=== PATIENT | male | born 1955 | race Caucasian/White ===

== ENCOUNTER 2021-01-29 00:42 | Day surgery (SDC) | payer BC, SELFPAY ==
[2021-01-17 13:11] VITALS: BMI 34.8
[2021-01-29 07:50] VITALS: BP 122/77; PULSE 76; RESP 18; TEMP 36.1; O2SAT 97; BMI 34.4
[2021-01-29] MEDS: LACTATED RINGERS 1,000 ML 150 ML IV CONT (08:03)
--- NOTE | 2021-01-29 08:53 | WPDANESEPPF ---
Anes - Initial Pre Proc Eval Procedure: Operation Date: 01/29/21 09:00 Proposed Procedures p Colonoscopy - José Miguel Tim MD Date/Time: 01/29/21 08:53 Surgeon: José Miguel Tim MD Pre Op Diagnosis: Positive ColoGuard Patient Data Age: 65 Gender: M Height: 1.75 m Weight: 105.8 kg Last Vital Signs Temp 36.1 C L 01/29/21 07:50 Pulse 76 01/29/21 07:50 Resp 18 01/29/21 07:50 BP 122/77 01/29/21 07:50 Pulse Ox 97 01/29/21 07:50 Allergies Allergy/AdvReac Type Severity Reaction Status Date / Time Penicillins Allergy Intermediate Fever Verified 01/29/21 07:49 Home Medications Medication Instructions Recorded Confirmed Type B-complex with vitamin C 1 cap PO DAILY 12/04/19 01/17/21 History multivitamin 1 cap PO DAILY 12/04/19 01/17/21 History omega-3 fatty acids 1,000 mg 2,000 mg PO BID cap 12/04/19 01/17/21 History capsule red yeast rice 600 mg capsule 600 mg PO BID 11/18/20 01/17/21 History cyanocobalamin (vitamin B-12) 1,000 mcg PO DAILY 11/26/20 01/17/21 History 1,000 mcg tablet folic acid 800 mcg tablet 0.8 mg PO DAILY 11/26/20 01/17/21 History sodium,potassium,mag sulfates 17.5 See Rx Instructions PO .COMPLEX 01/16/21 Rx gram-3.13 gram-1.6 gram oral soln #354 ml Beet Root 2 tab-cap PO DAILY 01/17/21 01/17/21 History Heptatone 2 cap PO DAILY 01/17/21 01/17/21 History Tummeric 1 cap PO DAILY 01/17/21 01/17/21 History pseudoephedrine-guaifenesin 1 tablet PO DAILY 01/17/21 01/17/21 History [Mucinex D] Patient hx anesthesia problems: none Family hx anesthesia problems: none PMFSH Past Medical History Medical History (Updated 01/29/21 @ 08:55 by Roc Alfaro MD) Blood donor Colon cancer screening Encounter for routine adult health examination without abnormal findings Hearing loss Hyperlipidemia Obesity Positive colorectal cancer screening using Cologuard test Sinusitis Family History Family History Mother Family history of glaucoma Patient's mother is in good health Father Family history of primary malignant neoplasm of liver Social History Social History (Updated 11/18/20 @ 07:54 by Lima Burch LPN) Smoking packs per day: 0 Smoking cigarettes per day: 0.0 Years smoked: 0 Smoking pack-years: 0.00 Smoking status: Light tobacco smoker Tobacco type: cigars Second hand tobacco smoke exposure: Yes Additional smoking assessment comments: OCC. CIGAR Alcohol intake: current Drinks per week: 5 Alcohol use details: WINE Substance use: never Substance use type: does not use Living arrangements: with family Spiritual care concerns: No Anes - Eval Final PreProcedure Day of Procedure 01/29/21 08:53 Patient weight: obese Heart: regular rate and rhythm Lungs: clear to auscultation and normal air movement Airway: Mallampati scale class II Neurological: alert and oriented Last oral intake: >/= 8 hours ASA classification: II Emergent: no Anesthetic plan: proceed Anesthesia type and monitoring: general GIVS Informed Consent: The patient's anesthetic plan and its attendant risks and benefits were discussed with the patient/family/POA. Questions were solicited and answers provided to the satisfaction of the patient/family/POA.
--- NOTE | 2021-01-29 09:11 | PM.HPGS ---
History of Present Illness History of Present Illness Consent: Risks, benefits, and alternatives have been discussed and questions answered. Patient agrees to proceed with procedure. Chief complaint: Positive ColoGuard Narrative: Negrito Menchaca is a 65 year old male with last colonoscopy 12 years ago, recently had + cologuard Review of Systems Constitutional: Constitutional: Denies headache(s) and Denies weakness Eyes: Eyes: Denies blurry vision ENT: Reports Normal hearing present, Denies headache(s) and Denies neck pain Cardiovascular: Cardiovascular: Denies chest pain and Denies dyspnea Respiratory: Respiratory: Denies dyspnea Gastrointestinal: Gastrointestinal: Reports no additional gastrointestinal complaints Genitourinary: Genitourinary: Denies dysuria Musculoskeletal: Musculoskeletal: Denies neck pain Integumentary/Breasts: Skin/Breast: Denies dry skin Neurologic: Reports Normal hearing present, Denies headache(s) and Denies weakness Psychiatric: Psychiatric: Denies anxiety Endocrine: Endocrine: Denies change in body appearance Hematologic/Lymphatic: Hematologic/Lymphatic: Denies easy bleeding Allergic/Immunologic: Allergic/Immunologic: Denies urticaria PMFSH Past Medical History Medical History (Updated 01/29/21 @ 08:55 by Roc Alfaro MD) Blood donor Colon cancer screening Encounter for routine adult health examination without abnormal findings Hearing loss Hyperlipidemia Obesity Positive colorectal cancer screening using Cologuard test Sinusitis Family History Family History Mother Family history of glaucoma Patient's mother is in good health Father Family history of primary malignant neoplasm of liver Social History Social History (Updated 11/18/20 @ 07:54 by Lima Burch LPN) Smoking packs per day: 0 Smoking cigarettes per day: 0.0 Years smoked: 0 Smoking pack-years: 0.00 Smoking status: Light tobacco smoker Tobacco type: cigars Second hand tobacco smoke exposure: Yes Additional smoking assessment comments: OCC. CIGAR Alcohol intake: current Drinks per week: 5 Alcohol use details: WINE Substance use: never Substance use type: does not use Living arrangements: with family Spiritual care concerns: No Meds Home Medications and Allergies Home Medications Medication Instructions Recorded Confirmed Type B-complex with vitamin C 1 cap PO DAILY 12/04/19 01/17/21 History multivitamin 1 cap PO DAILY 12/04/19 01/17/21 History omega-3 fatty acids 1,000 mg 2,000 mg PO BID cap 12/04/19 01/17/21 History capsule red yeast rice 600 mg capsule 600 mg PO BID 11/18/20 01/17/21 History cyanocobalamin (vitamin B-12) 1,000 mcg PO DAILY 11/26/20 01/17/21 History 1,000 mcg tablet folic acid 800 mcg tablet 0.8 mg PO DAILY 11/26/20 01/17/21 History sodium,potassium,mag sulfates 17.5 See Rx Instructions PO .COMPLEX 01/16/21 Rx gram-3.13 gram-1.6 gram oral soln #354 ml Beet Root 2 tab-cap PO DAILY 01/17/21 01/17/21 History Heptatone 2 cap PO DAILY 01/17/21 01/17/21 History Tummeric 1 cap PO DAILY 01/17/21 01/17/21 History pseudoephedrine-guaifenesin 1 tablet PO DAILY 01/17/21 01/17/21 History [Mucinex D] Allergies Allergy/AdvReac Type Severity Reaction Status Date / Time Penicillins Allergy Intermediate Fever Verified 01/29/21 07:49 Vital Signs Vital Signs - 24 hr 01/29/21 07:50 Temperature 96.9 F L Pulse Rate 76 Respiratory Rate 18 Blood Pressure 122/77 Pulse Oximetry 97 Exam Const: General: comfortable and no acute distress HENMT: General nose exam: Normal nares present Eyes: General: appearance normal, both eyes and all related structures Neck: Neck: no JVD Resp: Auscultation: clear to auscultation bilaterally Cardio: Rate: regular rate Rhythm: regular rhythm GI: Inspection: non-distended GI Palp: Yes Soft to palpation Skin: General skin
[2021-01-29 09:36] VITALS: BP 102/66; PULSE 64; RESP 19; O2SAT 96
[2021-01-29 09:46] VITALS: BP 116/77; PULSE 66; RESP 14; O2SAT 96
[2021-01-29 09:56] VITALS: BP 132/86; PULSE 63; RESP 17; O2SAT 94
== END 2021-01-29 10:02 | disposition home or self-care (01) ==
PROVIDERS: PCP Internal Medicine; Visit Provider Internal Medicine Gastroenterology
PROC: 0DJD8ZZ Inspection of Lower Intestinal Tract, Via Natural or Artificial Opening Endoscopic (ICD-10-PCS; CPT 45378; principal; 2021-01-29 09:00)
DX: R19.5 Other fecal abnormalities (principal); D12.5 Benign neoplasm of sigmoid colon; D12.8 Benign neoplasm of rectum; K63.5 Polyp of colon; K64.8 Other hemorrhoids; E78.5 Hyperlipidemia, unspecified; E66.9 Obesity, unspecified; Z68.34 Body mass index [BMI] 34.0-34.9, adult; Z72.0 Tobacco use
CPT/HCPCS: 45385; 88305; J2001; J2704; J7120

== ENCOUNTER 2023-07-12 08:14 | Outpatient (CLI) | payer BC, SELFPAY ==
--- NOTE | ~2023-07-12 | XR_ITS ---
EXAMINATION: XR chest 2V DATE: 07/12/2023 08:34 INDICATION: Cough. Chronic sinusitis. TECHNIQUE: Frontal and lateral views of the chest were obtained. COMPARISON: None. FINDINGS: There is no pneumonia, pleural effusion, or pneumothorax. The heart size is normal. There i s an old healed fracture of right clavicle. There is mild chronic anterior wedging of multiple midtho racic vertebral bodies. IMPRESSION: 1. No acute cardiopulmonary disease. Reviewed, dictated and finalized at location A.
--- NOTE | ~2023-07-12 | XR_ITS ---
EXAMINATION: XR sinus min 3V INDICATION: Chronic sinusitis TECHNIQUE: Five views of the paranasal sinuses are obtained. COMPARISON: None available FINDINGS: There is normal pneumatization of the paranasal sinuses. No definite sinus opacification is identified. No facial fracture is identified. The mastoid air cells appear to be well aerated. The n tabby septum is midline. IMPRESSION: 1. No definite evidence of sinusitis. If there is high clinical suspicion for sinusitis, further eval uation with CT sinuses is recommended. Reviewed, dictated and finalized at location B. IMPRESSION: 1. No definite evidence of sinusitis. If there is high clinical suspicion for s inusitis, further evaluation with CT sinuses is recommended.
== END 2023-07-12 08:15 | disposition home or self-care (01) ==
PROVIDERS: PCP Internal Medicine; Visit Provider Internal Medicine
DX: J32.9 Chronic sinusitis, unspecified (principal); R05.3 Chronic cough
CPT/HCPCS: 70220; 71046

== ENCOUNTER → 2023-07-19 13:24 | Outpatient (CLI) | payer BC, SELFPAY ==
--- NOTE | ~2023-07-19 | CT_ITS ---
EXAMINATION: CT sinus wo con DATE: 07/19/2023 13:40 INDICATION: Chronic sinusitis TECHNIQUE: Computed tomography (CT) of the paranasal sinuses was performed without intravenous contra st. The dose-length product was 292.39 mGy-cm. Automated exposure control and iterative reconstructio n technique were employed. COMPARISON: None FINDINGS: There is a mucous retention cyst of the right maxillary sinus. No significant mucosal thick ening. No mucoperiosteal reaction. No air-fluid levels. Rightward nasal septal deviation. Mastoids ar e pneumatized. Mastoids are pneumatized. IMPRESSION: 1. 1.7 cm mucous retention cyst right maxillary sinus. Reviewed, dictated and finalized at location B.
== END ==
PROVIDERS: PCP Internal Medicine; Visit Provider Allergy & Immunology
DX: J32.9 Chronic sinusitis, unspecified (principal)
CPT/HCPCS: 70486

== ENCOUNTER 2023-10-24 12:05 | Emergency (ER) | payer BC, SELFPAY ==
[2023-10-24 12:38] VITALS: BP 149/92; PULSE 62; RESP 16; TEMP 36.6; O2SAT 100
--- NOTE | 2023-10-24 12:41 | ED.GENADULT ---
HPI - General Adult General Chief complaint: Upper Respiratory Infection Stated complaint: Sore Throat Time Seen by Provider: 10/24/23 12:40 Source: patient, RN notes reviewed and old records reviewed Mode of arrival: ambulatory Limitations: no limitations History of Present Illness HPI narrative: 68-year-old male patient who presents to [facility] today with complaint of sore throat that started this a.m. Patient states was exposed to strep throat on so is wanting a strep test today to be safe. Patient denies any other complaints at this time Related Data Home Medications Medication Instructions Recorded Confirmed B-complex with vitamin C 1 cap PO DAILY 12/04/19 07/12/23 multivitamin 1 cap PO DAILY 12/04/19 07/12/23 omega-3 fatty acids 1,000 mg 2,000 mg PO BID 12/04/19 07/12/23 capsule (Fish Oil Concentrate) red yeast rice 600 mg capsule 600 mg PO BID 11/18/20 07/12/23 cyanocobalamin (vitamin B-12) 1,000 mcg PO DAILY 11/26/20 07/12/23 1,000 mcg tablet folic acid 800 mcg tablet 0.8 mg PO DAILY 11/26/20 07/12/23 Beet Root 2 tab-cap PO DAILY 01/17/21 07/12/23 Heptatone 2 cap PO DAILY 01/17/21 07/12/23 Tummeric 1 cap PO DAILY 01/17/21 07/12/23 pseudoephedrine-guaifenesin ER 60 1 tablet PO DAILY 01/17/21 07/12/23 mg-600 mg tablet,extend release 12hr (Mucinex D) Pre/Probiotic BYMOUTH 07/12/23 07/12/23 Allergies Allergy/AdvReac Type Severity Reaction Status Date / Time Penicillins Allergy Intermediate Fever Verified 07/12/23 07:33 Review of Systems Constitutional: Constitutional: Reports no additional constitutional complaints Eyes: Eyes: Reports no additional eye complaints ENT: Reports as per HPI and Reports sore throat Cardiovascular: Cardiovascular: Reports no additional cardiovascular complaints Respiratory: Respiratory: Reports no additional respiratory complaints Neurologic: Reports system reviewed and no additional complaints, except as documented PMFSH Past Medical History Medical History Abnormal finding of blood chemistry Blood donor BMI 34.0-34.9,adult BMI 35.0-35.9,adult BMI 36.0-36.9,adult Chronic cough Colon cancer screening Encounter for preventive health examination Encounter for routine adult health examination with abnormal findings Encounter for routine adult health examination without abnormal findings Hearing loss Hx of colonic polyps Hyperlipidemia Hyperlipidemia Obesity Personal history of COVID-19 Positive colorectal cancer screening using Cologuard test Sinusitis Surgical History Surgical History History of total bilateral knee replacement Family History Family History Mother Family history of glaucoma Patient's mother is in good health Father Family history of primary malignant neoplasm of liver Social History Social History Smoking packs per day: 0 Smoking cigarettes per day: 0.0 Years smoked: 0 Smoking pack-years: 0.00 Smoking status: Current some day smoker (cigar) Tobacco type: cigars Second hand tobacco smoke exposure: Yes Additional smoking assessment comments: OCC. CIGAR Alcohol intake: current Drinks per week: 5 Alcohol use details: WINE Substance use: never Substance use type: does not use Lack of Transportation: No Lack of Food: Never True Current Housing: I Have Housing Concerned About Future Housing: No Difficulty Paying Gas/Electric Bills: No Difficulty Paying for Meds: No Currently Unemployed: No Education: Bachelor's Degree Difficulty w/ Childcare or Family Care: No Living arrangements: with family Occupation/Education: occupation Gender identity (if verbalized by the patient): Male Spiritual care concerns: No Comments At the time of my signature
== END 2023-10-24 12:58 | disposition home or self-care (01) ==
PROVIDERS: Emergency Provider Registered Nurse; PCP Internal Medicine
DX: J02.9 Acute pharyngitis, unspecified (principal); Z72.0 Tobacco use; E78.5 Hyperlipidemia, unspecified; E66.9 Obesity, unspecified; Z68.34 Body mass index [BMI] 34.0-34.9, adult; Z86.16 Personal history of COVID-19; Z96.653 Presence of artificial knee joint, bilateral
CPT/HCPCS: 87081; 87880; 99213; G0463

== ENCOUNTER 2024-08-22 01:22 | Day surgery (SDC) | payer BC, SELFPAY ==
--- NOTE | 2024-06-02 09:15 | SUR.PREOP ---
Patient called to reschedule his procedure since Dr. Blake will be unavailable that day. Message left on his voicemail.
[2024-08-03 13:22] VITALS: BMI 34.8
[2024-08-22 06:18] VITALS: BP 128/74; PULSE 67; RESP 18; TEMP 36.5; O2SAT 98
[2024-08-22] MEDS: LACTATED RINGERS 1,000 ML 150 ML IV CONT (06:26)
--- NOTE | 2024-08-22 07:15 | PM.HPGS ---
History of Present Illness History of Present Illness Consent: Risks, benefits, and alternatives have been discussed and questions answered. Patient agrees to proceed with procedure. Chief complaint: Pers. Hx. colon polyp Narrative: Negrito Menchaca is a 69 year old male with colon polyp in 2020 Review of Systems Review of Systems: All systems reviewed & are unremarkable except as noted in HPI and below PMFSH Past Medical History Medical History (Updated 07/26/24 @ 07:16 by Dominga Castellanos [facility]) Abnormal finding of blood chemistry Blood donor BMI 34.0-34.9,adult BMI 35.0-35.9,adult BMI 36.0-36.9,adult Chronic cough Colon cancer screening Encounter for preventive health examination Encounter for routine adult health examination with abnormal findings Encounter for routine adult health examination without abnormal findings Hearing loss Hx of colonic polyps Hyperlipidemia Hyperlipidemia Obesity Personal history of COVID-19 Positive colorectal cancer screening using Cologuard test Sinusitis Surgical History Surgical History History of total bilateral knee replacement Family History Family History Mother Family history of glaucoma Patient's mother is in good health Father Family history of primary malignant neoplasm of liver Social History Social History Smoking packs per day: 0 Smoking cigarettes per day: 0.0 Years smoked: 0 Smoking pack-years: 0.00 Smoking status: Current some day smoker (cigar) Tobacco type: cigars Second hand tobacco smoke exposure: Yes Additional smoking assessment comments: 1-2 cigars per week Alcohol intake: current Drinks per week: 5 Alcohol use details: WINE Substance use: never Substance use type: does not use Lack of Transportation: No Lack of Food: Never True Current Housing: I Have Housing Concerned About Future Housing: No Difficulty Paying Gas/Electric Bills: No Difficulty Paying for Meds: No Currently Unemployed: No Education: Bachelor's Degree Difficulty w/ Childcare or Family Care: No Living arrangements: with family Occupation/Education: occupation Gender identity (if verbalized by the patient): Male Spiritual care concerns: No Meds Home Medications and Allergies Home Medications Medication Instructions Recorded Confirmed Type B-complex with vitamin C 1 cap PO DAILY 12/04/19 08/22/24 History multivitamin 1 cap PO DAILY 12/04/19 08/22/24 History omega-3 fatty acids 1,000 mg 2,000 mg PO BID 12/04/19 08/22/24 History capsule (Fish Oil Concentrate) red yeast rice 600 mg capsule 600 mg PO BID 11/18/20 08/22/24 History cyanocobalamin (vitamin B-12) 1,000 mcg PO DAILY 11/26/20 08/22/24 History 1,000 mcg tablet folic acid 800 mcg tablet 0.8 mg PO DAILY 11/26/20 08/22/24 History Beet Root 2 tab-cap PO DAILY 01/17/21 08/22/24 History Heptatone 2 cap PO DAILY 01/17/21 08/22/24 History Tummeric 1 cap PO DAILY 01/17/21 08/22/24 History pseudoephedrine-guaifenesin ER 60 1 tablet PO DAILY 01/17/21 08/22/24 History mg-600 mg tablet,extend release 12hr (Mucinex D) Pre/Probiotic 1 1.73 m2 PO DAILY 07/12/23 08/22/24 History Glucosamin and Chondroiton 1 tab-cap BYMOUTH DAILY 12/15/23 08/22/24 History k2 1 cap BYMOUTH DAILY 07/26/24 08/22/24 History zinc 1 tab-cap BYMOUTH DAILY 07/26/24 08/22/24 History ashwagandha extract 1 tablet PO DAILY 08/03/24 08/22/24 History Allergies Allergy/AdvReac Type Severity Reaction Status Date / Time Penicillins Allergy Intermediate Fever Verified 08/22/24 06:16 Vital Signs Vital Signs - 24 hr 08/22/24 06:18 Temperature 97.7 F Pulse Rate 67 Respiratory Rate 18 Blood Pressure 128/74 Pulse Oximetry 98 Oxygen Delivery Room Air Exam Const: General: comfortable and no acute distress HENMT: Face/N
--- NOTE | 2024-08-22 07:42 | WPDANESEPPF ---
Anes - Initial Pre Proc Eval Procedure: Operation Date: 08/22/24 07:30 Proposed Procedures p Colonoscopy - José Miguel Tim MD Date/Time: 08/22/24 07:42 Surgeon: José Miguel Tim MD Pre Op Diagnosis: Pers. Hx. colon polyp Patient Data Age: 69 Gender: M Height: 1.75 m Weight: 107.5 kg Last Vital Signs Temp 97.7 F 08/22/24 06:18 Pulse 67 08/22/24 06:18 Resp 18 08/22/24 06:18 BP 128/74 08/22/24 06:18 Pulse Ox 98 08/22/24 06:18 O2 Del Method Room Air 08/22/24 06:18 Allergies Allergy/AdvReac Type Severity Reaction Status Date / Time Penicillins Allergy Intermediate Fever Verified 08/22/24 06:16 Home Medications Medication Instructions Recorded Confirmed Type B-complex with vitamin C 1 cap PO DAILY 12/04/19 08/22/24 History multivitamin 1 cap PO DAILY 12/04/19 08/22/24 History omega-3 fatty acids 1,000 mg 2,000 mg PO BID 12/04/19 08/22/24 History capsule (Fish Oil Concentrate) red yeast rice 600 mg capsule 600 mg PO BID 11/18/20 08/22/24 History cyanocobalamin (vitamin B-12) 1,000 mcg PO DAILY 11/26/20 08/22/24 History 1,000 mcg tablet folic acid 800 mcg tablet 0.8 mg PO DAILY 11/26/20 08/22/24 History Beet Root 2 tab-cap PO DAILY 01/17/21 08/22/24 History Heptatone 2 cap PO DAILY 01/17/21 08/22/24 History Tummeric 1 cap PO DAILY 01/17/21 08/22/24 History pseudoephedrine-guaifenesin ER 60 1 tablet PO DAILY 01/17/21 08/22/24 History mg-600 mg tablet,extend release 12hr (Mucinex D) Pre/Probiotic 1 1.73 m2 PO DAILY 07/12/23 08/22/24 History Glucosamin and Chondroiton 1 tab-cap BYMOUTH DAILY 12/15/23 08/22/24 History k2 1 cap BYMOUTH DAILY 07/26/24 08/22/24 History zinc 1 tab-cap BYMOUTH DAILY 07/26/24 08/22/24 History ashwagandha extract 1 tablet PO DAILY 08/03/24 08/22/24 History Patient hx anesthesia problems: none Family hx anesthesia problems: none Results Review: All pre-operative results and documents have been reviewed as part of the pre-operative evaluation. [facility] Past Medical History Medical History (Updated 07/26/24 @ 07:16 by Dominga Castellanos CMA) Abnormal finding of blood chemistry Blood donor BMI 34.0-34.9,adult BMI 35.0-35.9,adult BMI 36.0-36.9,adult Chronic cough Colon cancer screening Encounter for preventive health examination Encounter for routine adult health examination with abnormal findings Encounter for routine adult health examination without abnormal findings Hearing loss Hx of colonic polyps Hyperlipidemia Hyperlipidemia Obesity Personal history of COVID-19 Positive colorectal cancer screening using Cologuard test Sinusitis Surgical History Surgical History History of total bilateral knee replacement Family History Family History Mother Family history of glaucoma Patient's mother is in good health Father Family history of primary malignant neoplasm of liver Social History Social History Smoking packs per day: 0 Smoking cigarettes per day: 0.0 Years smoked: 0 Smoking pack-years: 0.00 Smoking status: Current some day smoker (cigar) Tobacco type: cigars Second hand tobacco smoke exposure: Yes Additional smoking assessment comments: 1-2 cigars per week Alcohol intake: current Drinks per week: 5 Alcohol use details: WINE Substance use: never Substance use type: does not use Lack of Transportation: No Lack of Food: Never True Current Housing: I Have Housing Concerned About Future Housing: No Difficulty Paying Gas/Electric Bills: No Difficulty Paying for Meds: No Currently Unemployed: No Education: Bachelor's Degree Difficulty w/ Childcare or Family Care: No Living arrangements: with family Occupation/Education: occupation Gender identity (if verbalized by the patient): Male Spiritual
[2024-08-22 07:43] VITALS: BP 106/65; PULSE 56; RESP 16; O2SAT 98
[2024-08-22 07:53] VITALS: BP 120/78; PULSE 59; RESP 18; O2SAT 100
[2024-08-22 08:03] VITALS: BP 130/81; PULSE 54; RESP 18; O2SAT 100
== END 2024-08-22 08:14 | disposition home or self-care (01) ==
PROVIDERS: PCP Internal Medicine; Visit Provider Internal Medicine Gastroenterology
PROC: 0DJD8ZZ Inspection of Lower Intestinal Tract, Via Natural or Artificial Opening Endoscopic (ICD-10-PCS; CPT 45378; principal; 2024-08-22 07:30)
DX: Z12.11 Encounter for screening for malignant neoplasm of colon (principal); D12.4 Benign neoplasm of descending colon; K64.8 Other hemorrhoids; E78.5 Hyperlipidemia, unspecified; E66.9 Obesity, unspecified; Z68.35 Body mass index [BMI] 35.0-35.9, adult; Z72.0 Tobacco use
CPT/HCPCS: 45385; 88305; J2001; J2704; J7120